=== PATIENT | male | born 1955 | race Two or more races ===

== ENCOUNTER 2021-03-10 06:00 | Day surgery (SDC) | payer OTHER ==
[~2021-03-10 06:00] MED LIST: AMLODIPINE BESYL5 MG PO; CLARITIN10 M1 PO; COZAAR100 MG PO; SIMVASTATIN20 MG PO
== END 2021-03-10 17:40 | disposition home or self-care (01) ==
LOC: CIR.AMB 06:00
PROVIDERS: ATTEND Specialist
DX: K40.90 Unilateral inguinal hernia, without obstruction or gangrene, not specified as recurrent (principal); Z20.822 Contact with and (suspected) exposure to COVID-19

== ENCOUNTER 2025-05-27 07:31 | Outpatient (CLI) | payer OTHER | END 2025-05-27 07:35 | disposition home or self-care (01) | LOC: TOM 07:31 | PROVIDERS: ATTEND Specialist | DX: R10.30 Lower abdominal pain, unspecified (principal) ==